=== PATIENT | male | born 1985 | race Hispanic/Latino ===

== ENCOUNTER 2021-09-13 07:23 | Emergency (ER) | payer OTHER, SELFPAY ==
[2021-09-13] MEDS ORDERED: Proparacaine 0.5% Opth 15 ML BOT ONE (07:41)
[2021-09-13] MEDS ORDERED: Fluorescein Opthalmic Strip ONE (07:41)
== END 2021-09-13 09:11 | disposition home or self-care (01) ==
LOC: ERS 07:23
DX: S05.01XA Injury of conjunctiva and corneal abrasion without foreign body, right eye, initial encounter (principal); F17.210 Nicotine dependence, cigarettes, uncomplicated; X58.XXXA Exposure to other specified factors, initial encounter; Y92.69 Other specified industrial and construction area as the place of occurrence of the external cause
CPT/HCPCS: 99283

== ENCOUNTER 2021-10-09 19:57 | Emergency (ER) | payer SELFPAY | END 2021-10-09 23:22 | disposition home or self-care (01) | LOC: ERS 19:57 | DX: J32.9 Chronic sinusitis, unspecified (principal); Z20.822 Contact with and (suspected) exposure to COVID-19; F17.210 Nicotine dependence, cigarettes, uncomplicated | CPT/HCPCS: 93005; U0003; U0005 ==

== ENCOUNTER 2022-02-14 13:35 | Emergency (ER) | payer SELFPAY ==
[2022-02-14] MEDS ORDERED: Acetaminophen 500 MG TAB ONE (15:37)
[2022-02-14] MEDS ORDERED: Ibuprofen 800 MG TAB ONE (15:37)
== END 2022-02-14 15:58 | disposition home or self-care (01) ==
LOC: ERS 13:35
DX: J06.9 Acute upper respiratory infection, unspecified (principal); F17.210 Nicotine dependence, cigarettes, uncomplicated
CPT/HCPCS: 99283

== ENCOUNTER 2022-02-17 13:29 | Emergency (ER) | payer SELFPAY | END 2022-02-17 14:49 | disposition home or self-care (01) | LOC: ERS 13:29 | DX: J06.9 Acute upper respiratory infection, unspecified (principal); F17.210 Nicotine dependence, cigarettes, uncomplicated | CPT/HCPCS: 71045; 87081; 87430 ==

== ENCOUNTER 2022-07-22 12:32 | Emergency (ER) | payer SELFPAY | END 2022-07-22 15:44 | disposition home or self-care (01) | LOC: ERS 12:32 | DX: M79.605 Pain in left leg (principal); F17.210 Nicotine dependence, cigarettes, uncomplicated | CPT/HCPCS: 72170 ==

== ENCOUNTER 2023-01-23 16:39 | Emergency (ER) | payer SELFPAY | END 2023-01-23 19:48 | disposition home or self-care (01) | LOC: ERS 16:39 | DX: M16.32 Unilateral osteoarthritis resulting from hip dysplasia, left hip (principal); R20.0 Anesthesia of skin; F17.210 Nicotine dependence, cigarettes, uncomplicated | CPT/HCPCS: 99284 ==